=== PATIENT | male | born 1950 | race Caucasian/White ===

== ENCOUNTER → 2024-08-18 | Day surgery (SDC) | payer OTHER ==
[2024-08-14 10:55] LABS: BASOPHILS % (AUTO) 0.8 % (0-1); EOSINOPHILS # (AUTO) 0.1 X10'3 (0-0.9); EOSINOPHILS % (AUTO) 2.6 % (0-6); HEMATOCRIT 40.4 % (42.0-52.0); HEMOGLOBIN 13.6 g/dl (14.0-17.9); LYMPHOCYTES # (AUTO) 1.2 X10'3 (1.1-4.8); LYMPHOCYTES % (AUTO) 25.1 % (21-51); MEAN CORPUSCULAR HEMOGLOBIN 29.1 PG (27.0-31.0); MEAN CORPUSCULAR HGB CONC 33.8 g/dL (33.0-36.5); MEAN CORPUSCULAR VOLUME 86.2 FL (78-98); MONOCYTES # (AUTO) 0.5 X10'3 (0-0.9); MONOCYTES % (AUTO) 10.9 % (2-12); NEUTROPHILS # (AUTO) 2.9 X10'3 (1.8-7.7); NEUTROPHILS % (AUTO) 60.6 % (42-75); PLATELET COUNT 325 X10'3 (140-440); RED BLOOD COUNT 4.69 X10'6 (4.70-6.10); RED CELL DISTRIBUTION WIDTH 14.8 % (11.5-14.5); WHITE BLOOD COUNT 4.9 X10'3 (4.5-11.0)
[2024-08-14 11:05] LABS: APTT 25 SECONDS (22-32); PROTHROMBIN TIME 10.9 SECONDS (9.0-12.0)
[2024-08-14 11:09] LABS: ALBUMIN 3.3 G/DL (3.4-5.0); ANION GAP 5 (8-16); BLOOD UREA NITROGEN 9 MG/DL (7-18); BUN/CREATININE RATIO 10.1 (10.0-20.0); CALCIUM 9.2 MG/DL (8.5-10.1); CHLORIDE 103 MMOL/L (99-107); CHOL/HDL RATIO 3.5 (0.00-4.99); CHOLESTEROL 163 MG/DL (0-200); CREATININE 0.89 MG/DL (0.60-1.10); GLUCOSE 120 MG/DL (70-104); HDL CHOLESTEROL 46 MG/DL (35-60); LDL CHOLESTEROL 90 MG/DL (50-100); POTASSIUM 4.3 MMOL/L (3.5-5.1); SODIUM 138 MMOL/L (135-145); TOTAL CARBON DIOXIDE 30.1 MMOL/L (24-32); TRIGLYCERIDES 158 MG/DL (20-135); eGFR 83 ML/MIN
[2024-08-18] VITALS (8 sets, daily range): BP systolic 145–170; BP diastolic 66–91; PULSE 67–75; RESP 10–12; TEMP 98.1; O2SAT 93–95
[~2024-08-18] VITALS: Ht 175.3 cm; Wt 99.9 kg
[~2024-08-18] MED LIST: ASPI81TA52 PO; ATOR20TA PO; DULO20CA50 PO; GLUC-95 PO; HYDROcodone/acetaminophen 10/325mg tab PO PRN; HYDROcodone/acetaminophen 5mg/325mg tablet PO PRN; LIDOcaine 1% (10mg/ml) 2ml vial ONE; METO-384 PO; OMEP40CA21 PO; fentaNYL/PF 50MCG/1 ML 2ML syringe ONE; heparin 1,000unit/ml 10ml vial 10 ML ONE; iohexol 350MG/ML 100ml bottle IV ONE; midazolam 1 mg/ML 2ml injection ONE; nitroGLYCERIN 500mcg/5mL D5W 5 ML IV ONE; verapamil 2.5 mg/ml inj IV ONE
[2024-08-18] MEDS: LORazepam 0.5 MG tablet PO PRN (11:37)
[2024-08-18] MEDS: diphenhydrAMINE 25mg capsule PO PRN (11:37)
[2024-08-18] MEDS: normal saline 1,000 ML IV SCH (11:38)
== END | disposition home or self-care (01) ==
LOC: SSTAY O 09:26
PROVIDERS: ATTEND Student in an Organized Health Care Education/Training Program
DX: R06.02 Shortness of breath (principal); I25.10 Atherosclerotic heart disease of native coronary artery without angina pectoris; E78.5 Hyperlipidemia, unspecified; I10 Essential (primary) hypertension; Z86.72 Personal history of thrombophlebitis; Z79.899 Other long term (current) drug therapy; Z98.890 Other specified postprocedural states
CPT/HCPCS: 36415; 80048; 80061; 85025; 85610; 85730; 93005; 93458; A6258; J1644; J2003; J2250; J3010; J3490; J7030; Q0163; Q9967; 99152; A6402; C1894